=== PATIENT | male | born 1955 | race Caucasian/White ===

== ENCOUNTER 2020-04-16 17:39 | Emergency (ER) | payer MEDICARE | END 2020-04-16 18:16 | disposition home or self-care (01) | LOC: MADERS 17:39 | DX: M10.9 Gout, unspecified (principal); E11.9 Type 2 diabetes mellitus without complications; E78.5 Hyperlipidemia, unspecified; I10 Essential (primary) hypertension; Z79.84 Long term (current) use of oral hypoglycemic drugs; Z79.899 Other long term (current) drug therapy | CPT/HCPCS: 99283 ==

== ENCOUNTER 2021-02-15 19:29 | Emergency (ER) | payer MEDICARE ==
[2021-02-15] MEDS ORDERED: Acetaminophen/Codeine 30-300mg Tablet ONE (19:55)
[2021-02-15] MEDS ORDERED: Colchicine 0.6 MG TAB ONE (19:55)
[2021-02-15] MEDS ORDERED: Dexamethasone 4 MG TAB ONE (19:55)
== END 2021-02-15 20:10 | disposition home or self-care (01) ==
LOC: MADERS 19:29
DX: M10.9 Gout, unspecified (principal); E11.9 Type 2 diabetes mellitus without complications; E78.5 Hyperlipidemia, unspecified; I10 Essential (primary) hypertension; Z79.84 Long term (current) use of oral hypoglycemic drugs; Z79.899 Other long term (current) drug therapy
CPT/HCPCS: 99283; J8540

== ENCOUNTER 2022-04-18 12:25 | Emergency (ER) | payer MEDICARE ==
[2022-04-18] MEDS ORDERED: Ibuprofen 800 MG TAB ONE (12:57)
== END 2022-04-18 13:02 | disposition home or self-care (01) ==
LOC: MADERS 12:25
DX: R51.9 Headache, unspecified (principal); I10 Essential (primary) hypertension; E11.9 Type 2 diabetes mellitus without complications; E78.5 Hyperlipidemia, unspecified; M10.9 Gout, unspecified; Z79.84 Long term (current) use of oral hypoglycemic drugs; Z79.899 Other long term (current) drug therapy
CPT/HCPCS: 99283